=== PATIENT | male | born 1940 | race Caucasian/White ===

== ENCOUNTER 2020-03-17 18:23 | Emergency (ER) | payer OTHER, MEDICARE ==
[~2020-03-17] VITALS: Ht 175.3 cm; Wt 93.0 kg
[2020-03-17] MEDS ORDERED: COZAAR25 MG PO (18:33)
[2020-03-17] MEDS ORDERED: SIMVASTATIN40 MG PO (18:34)
[2020-03-17] MEDS ORDERED: ZETIA10 MG PO (18:35)
[2020-03-17] MEDS ORDERED: ISOSORBIDE MONO30 MG PO (18:36)
[2020-03-17] MEDS ORDERED: NORCO 5-325 TA1 EACH PO (19:35)
[2020-03-17] MEDS ORDERED: KEFLEX500 MG PO (19:35)
== END 2020-03-17 19:40 | disposition home or self-care (01) ==
LOC: ED 18:23
PROC: 0HQMXZZ Repair Right Foot Skin, External Approach (ICD-10-PCS; principal; 2020-03-17)
DX: S91.311A Laceration without foreign body, right foot, initial encounter (principal); I10 Essential (primary) hypertension; Z79.899 Other long term (current) drug therapy; X58.XXXA Exposure to other specified factors, initial encounter
CPT/HCPCS: 12002; 73630; 99283-25; A9270